=== PATIENT | male | born 1935 | race Caucasian/White ===

== ENCOUNTER 2016-11-30 21:40 | Emergency (ER) | payer MEDICARE, OTHER ==
[2016-11-30] MEDS ORDERED: PHENYLEPHRINE 1% NASAL 15 SPRAYS/15 ML BTL NASAL ONE (22:11)
--- NOTE | 2016-11-30 22:53 | ER PHYSICIAN DOCUMENTATION ---
Physician Documentation [facility] Name:Jatin Mackay Age:81 yrs Sex:Male :1935 Arrival Date:11/30/2016 Time:21:40 Bed2 Private MD:Guillaume Rodriguez ED, Chris Disposition: 11/30/16 22:43 Discharged to Home/Self Care. Impression: Anterior Epistaxis. - Condition is Fair. - Discharge Instructions: EPISTAXIS (Adult), NASAL PACKING, Anterior (Removable). - Prescriptions for Amoxicillin 875 mg Oral - take 1 tablet by ORAL route every 12 hours for 3 days; 6 tablet. - Medical Reconciliation form form. - Follow up: Emergency Department; When: 12/04/2016; Reason: Recheck today's complaints, Continuance of care. - Problem is new. - Symptoms are resolved. - Notes: Drink plenty of fluids. Take Amoxil 875mg by mouth every 12 hours for 3 days to prevent sinusitis Return to the ER in 3 days on the 04 of December to have packing removed. Humidifier at the bedside would be helpful. HPI: 11/30 21:45 This 81 yrs old Male presents to ER via Walk In with complaints of Nose Bleed.cd 21:45 The patient presents with a nose bleed, that is apparently anterior, from the left cd nare, occurred dry air, that is continuous small amount causative factors include: unknown, and the bleeding is not resolved and continues in ER. Onset: The symptom(s)/episode began/occurred acutely, 1.5 hour(s) ago. Modifying factors: The symptoms are alleviated by pressure. Associated signs and symptoms: The patient has no apparent associated signs or symptoms. Severity of symptoms: At their worst the symptoms were moderate in the emergency department the symptoms are unchanged. The patient has experienced similar episodes in the past. Patient is not on anticoagulants. Historical: - Allergies: No known drug Allergies; - Home Meds: 1. terazosin 10 mg oral cap 1 cap once daily at bedtime 2. omeprazole 20 mg oral cpDR 1 cap once daily 3. levothyroxine 112 mcg oral cap 1 cap once daily 4. naproxen 500 mg oral tab 1 tab every 12 hours 5. aspirin 325 mg oral TbEC 1 tab once daily 6. wobenzym joint supplement Q/Day - PMHx: NOSEBLEEDS; ARTHRITIS; CAD; THYROID PROBLEM; - PSHx: Bovine Valve Replacement; Small Bowel Resection ; - Tetanus: < 10 years. - Ebola Screening: : Patient negative for fever greater than or equal to 101.5 degrees Fahrenheit, and additional compatible Ebola Virus Disease symptoms. - Immunization history: Flu Vaccine unknown. - Social history: Smoking status: Patient states former smoker of tobacco. ROS: 22:00 ENT: Positive for nose bleed, Negative for rhinorrhea, sinus congestion, sinus pain. cd 22:00 All other systems are negative. Exam: 22:00 Eyes: Pupils equal round and reactive to light, extra-ocular motions intact. Lids and cd lashes normal. Conjunctiva and sclera are non-icteric and not injected. Cornea within normal limits. Periorbital areas with no swelling, redness, or edema. Neck: Trachea midline, no thyromegaly or masses palpated, and no cervical lymphadenopathy. Supple, full range of motion without nuchal rigidity, or vertebral point tenderness. No Meningismus. Cardiovascular: Regular rate and rhythm with a normal S1 and S2. No gallops, murmurs, or rubs. Normal PMI, no JVD. No pulse deficits. 22:00 Respiratory: Lungs have equal breath sounds bilaterally, clear to auscultation and cd percussion. No rales, rhonchi or wheezes noted. No increased work of breathing, no retractions or nasal flaring. 22:00 Constitutional: The patient appears alert, awake, non-diaphoretic, non-toxic, well developed, well nourished, anxious. 22:00 ENT: Nose: bleeding, is seen from the left nare, and is moderate, no septal hematoma is appreciated, clotted blood, in left nare, Mouth: is normal. Vital Signs: 21:54 BP 154 / 92; Pulse 89; Resp 17; Temp 98.4(TE); Pulse Ox 96% on R/A; Weight 88.45 kg; rh Height 6 ft. 2 in. (187.96 cm); Pain 0/10; 22:51 BP 135 / 84; Pulse 66; Resp 15; Pulse Ox 96% on R/A; Pain 0/10; rh 21:54 Body Mass Index 25.04 (88.45 kg, 187.96 cm) rh Procedures: 22:00 Epistaxis treatment: A moderate amount of bleeding noted from left nare. Treated using Oxymetazoline sprays, cauterization, silver nitrate, direct pressure, nasal clamp, anterior packing, after nasal tampons did not work. MDM: 22:40 Data reviewed: vital signs, nurses notes, old medical records, and as a result, I will cd discharge patient, after packing the patients right nares. Data interpreted: Pulse oximetry: on room air is 96 %. Interpretation: normal. 22:41 Patient medically screened. cd 22:45 Counseling: I had a detailed discussion with the patient and/or guardian regarding: the cd historical points, exam findings, and any diagnostic results supporting the discharge/admit diagnosis, the need for outpatient follow up, for a recheck, with the patient's primary care provider, to return to the emergency department if symptoms worsen or persist or if there are any questions or concerns that arise at home. Response to treatment: the patient's symptoms have resolved after treatment, the patient's condition has returned to base line, the patient is now symptom free, and as a result, I will discharge patient. Dispensed Medications: 20:20 Drug: Afrin Drops 0.05 % 2 drops; Route: Intranasal; Site: left nare; 22:51 Drug: Amoxicillin 500 mg; Route: PO; 22:51 Follow up: Response: No adverse reaction Signatures: Oren Sharma MD MD cd Hofsess, Rachel indiana mcpherson
--- NOTE | 2016-11-30 22:53 | ER NURSING DOCUMENTATION ---
Nurse's Notes [facility] Name:Jatin Mackay Age:81 yrs Sex:Male :1935 Arrival Date:11/30/2016 Time:21:40 Bed2 Private MD:Guillaume Rodriguez Diagnosis:Anterior Epistaxis Presentation: 11/30 21:49 Presenting complaint: Patient states: Pt started having the nose bleed about an hour rh and a half ago. Pt has had nosebleeds like this in the past and his PCP stated that he should go to the ER if he is unable to stop them. Both nares are bleeding. Transition of care: Home. 21:49 Acuity: ADOLPH 4 rh 21:49 Method Of Arrival: Walk In Triage Assessment: 21:53 General: Appears in no apparent distress, Behavior is cooperative. Pain: Denies pain. rh EENT: Nares with bleeding noted bilaterally. Neuro: Level of Consciousness is awake, alert, obeys commands, Oriented to person, place, time, event. Respiratory: Airway is patent Respiratory effort is even, unlabored. Historical: - Allergies: No known drug Allergies; - Home Meds: 1. terazosin 10 mg oral cap 1 cap once daily at bedtime 2. omeprazole 20 mg oral cpDR 1 cap once daily 3. levothyroxine 112 mcg oral cap 1 cap once daily 4. naproxen 500 mg oral tab 1 tab every 12 hours 5. aspirin 325 mg oral TbEC 1 tab once daily 6. wobenzym joint supplement Q/Day - PMHx: NOSEBLEEDS; ARTHRITIS; CAD; THYROID PROBLEM; - PSHx: Bovine Valve Replacement; Small Bowel Resection ; - Tetanus: < 10 years. - Ebola Screening: : Patient negative for fever greater than or equal to 101.5 degrees Fahrenheit, and additional compatible Ebola Virus Disease symptoms. - Immunization history: Flu Vaccine unknown. - Social history: Smoking status: Patient states former smoker of tobacco. Screenin:54 Infectious Disease Risk None. Abuse screen: Denies threats or abuse. Denies injuries rh from another. Nutritional screening: No deficits noted. Assessment: 21:54 See Triage Assessment done by same RN. Vital Signs: 21:54 BP 154 / 92; Pulse 89; Resp 17; Temp 98.4(TE); Pulse Ox 96% on R/A; Weight 88.45 kg; rh Height 6 ft. 2 in. (187.96 cm); Pain 0/10; 22:51 BP 135 / 84; Pulse 66; Resp 15; Pulse Ox 96% on R/A; Pain 0/10; 21:54 Body Mass Index 25.04 (88.45 kg, 187.96 cm) ED Course: 21:44 Patient arrived in ED. ma1 21:44 Guillaume Rodriguez is Private Physician. [facility] 21:48 Nosebleed Care Nasal Clamp Applied. 21:49 Vanessa Chen is Primary Nurse. 21:50 Triage completed. 21:54 Notified ED Physician of patient's arrival and chief complaint. Dr. Sharma notified. 21:55 Valuables Remains with patient. 22:41 Oren Sharma MD is Attending Physician. 22:41 Assist Provider Assist provider with nosebleed control using Afrin sprays, simple rh cauterization, direct pressure, nasal clamp, posterior packing, Bleeding from both nares. Set up for procedure. Performed by Oren Sharma MD Bleeding stopped. Patient tolerated well. Administered Medications: 20:20 Drug: Afrin Drops 0.05 % 2 drops; Route: Intranasal; Site: left nare; 22:51 Drug: Amoxicillin 500 mg; Route: PO; 22:51 Follow up: Response: No adverse reaction Outcome: 22:43 Discharge ordered by . 22:51 Discharged to home ambulatory, with friend. 22:51 Condition: improved 22:51 Discharge Assessment: Patient awake, alert and oriented x 3. No cognitive and/or functional deficits noted. Patient verbalized understanding of disposition instructions. nosebleed under control with nasal packing 22:51 Discharge instructions given to patient, Instructed on discharge instructions, follow up and referral plans. medication usage, Demonstrated understanding of instructions, medications, Prescriptions given X 1. 22:52 Patient left the ED. 12/01 12:47 Discharge F/U Call: Unable to reach: no answer ny 12/02 10:20 Discharge F/U Call: Unable to reach: no answer Signatures: Ellen Urban RN Oren Anguiano ma, MD MD cd Hofsess, Rachel [place] mcpherson Nany Field Melissa [facility]
[2016-11-30] MEDS ORDERED: AMOXICILLIN 250 MG CAPSULE PO ONE (22:54)
== END 2016-11-30 22:53 | disposition home or self-care (01) ==
LOC: ER 21:40
DX: R04.0 Epistaxis (principal); Z79.82 Long term (current) use of aspirin; I25.10 Atherosclerotic heart disease of native coronary artery without angina pectoris; Z79.899 Other long term (current) drug therapy; Z95.3 Presence of xenogenic heart valve
CPT/HCPCS: 30901; 30903; 30905; 99282; 99283

== ENCOUNTER 2016-12-04 09:07 | Emergency (ER) | payer MEDICARE, OTHER ==
--- NOTE | 2016-12-04 09:25 | ER NURSING DOCUMENTATION ---
Nurse's Notes [facility] Name:Jatin Mackay Age:81 yrs Sex:Male :1935 Arrival Date:12/04/2016 Time::07 Bed2 Private MD:Guillaume Rodriguez Diagnosis:Epistaxis - Nose Bleed Presentation: 12/04 09:09 Acuity: ADOLPH 4 09:20 Presenting complaint: Patient states: Nasal Packing Removal. Transition of care: Home. : Method Of Arrival: Walk In Triage Assessment: : General: Appears in no apparent distress, Behavior is cooperative. Pain: Denies pain. rh EENT: Nares are clear on right Nasal Packing in place. Historical: - Allergies: No known drug Allergies; - Home Meds: 1. terazosin 10 mg oral cap 1 cap once daily at bedtime 2. omeprazole 20 mg oral cpDR 1 cap once daily 3. levothyroxine 112 mcg oral cap 1 cap once daily 4. naproxen 500 mg oral tab 1 tab every 12 hours 5. aspirin 325 mg oral TbEC 1 tab once daily 6. wobenzym joint supplement Q/Day - PMHx: NOSEBLEEDS; ARTHRITIS; CAD; THYROID PROBLEM; Anterior Epistaxis (November 30, 2016); - PSHx: Bovine Valve Replacement; Small Bowel Resection ; - Tetanus: < 10 years. - Ebola Screening: : Patient negative for fever greater than or equal to 101.5 degrees Fahrenheit, and additional compatible Ebola Virus Disease symptoms. - Immunization history: Flu Vaccine < 1 year. - Social history: Smoking status: Patient states former smoker of tobacco. Screenin: Infectious Disease Risk None. Abuse screen: Denies threats or abuse. Denies injuries rh from another. Nutritional screening: No deficits noted. Assessment: : See Triage Assessment done by same RN. : Reassessment: nasal packing removed from right nare, no bleeding noted. . Vital Signs: : BP 126 / 80; Pulse 73; Resp 16; Pulse Ox 96% ; Weight 88.45 kg; Height 6 ft. 1 in. rh (185.42 cm); Pain 0/10; 09:21 Body Mass Index 25.73 (88.45 kg, 185.42 cm) ED Course: : Patient arrived in ED. ama 09: Guillaume Rodriguez is Private Physician. ama 09:09 Vanessa Chen is Primary Nurse. rh 09:15 Triage completed. rh 09:22 Valuables Remains with patient Patient has correct armband on for positive rh identification. 09:22 Nasal Packing from right nare. rh Administered Medications: No medications were administered Outcome: :23 Discharged to home ambulatory. rh 09:23 Condition: improved 09:23 Instructed on discharge instructions, follow up and referral plans. 09:23 No charge visit due to Nasal Packing removal . 09:24 Discharge ordered by MD. rh 09:24 Patient left the ED. rh Signatures: Rafat Garvin, Reg Reg Vanessa Richards rh
== END 2016-12-04 09:25 | disposition home or self-care (01) ==
LOC: ER 09:07
DX: Z48.00 Encounter for change or removal of nonsurgical wound dressing (principal); R04.0 Epistaxis

== ENCOUNTER 2016-12-15 19:52 | Emergency (ER) | payer MEDICARE, OTHER ==
[2016-12-15] MEDS ORDERED: PHENYLEPHRINE 1% NASAL 15 SPRAYS/15 ML BTL NASAL ONE (20:16)
[2016-12-15] MEDS ORDERED: AMOXICILLIN 250 MG CAPSULE PO ONE (20:27)
--- NOTE | 2016-12-15 20:29 | ER PHYSICIAN DOCUMENTATION ---
Physician Documentation [facility] Name:Jatin Mackay Age:81 yrs Sex:Male :1935 Arrival Date:12/15/2016 Time:19:52 Bed2 Private MD:Guillaume Rodriguez ED, Chris Disposition: 12/15/16 20:15 Discharged to Home/Self Care. Impression: Anterior Epistaxis - : Acute Left. - Condition is Good. - Discharge Instructions: EPISTAXIS (Adult), NASAL PACKING, Anterior (Removable). - Prescriptions for Amoxicillin 875 mg Oral - take 1 tablet by ORAL route every 12 hours for 10 days; 6 tablet. - Medical Reconciliation form form. - Follow up: Emergency Department; When: 12/18/2016; Reason: Recheck today's complaints, Continuance of care. - Problem is new. - Symptoms are resolved. HPI: 12/15 19:55 This 81 yrs old Male presents to ER via Private Vehicle with complaints of cd Nose Bleed. 19:55 The patient presents with a nose bleed, that is apparently anterior, from the left cd nare, occurred dry air, that is small amount with clots, stopped /dried blood noted. causative factors include: previous HX of nosebleeds, and the bleeding resolved prior to arrival. Onset: The symptom(s)/episode began/occurred acutely, tonight. Associated signs and symptoms: The patient has no apparent associated signs or symptoms. The patient has experienced similar episodes in the past. Historical: - Allergies: No known drug Allergies; - Home Meds: 1. terazosin 10 mg oral cap 1 cap once daily at bedtime 2. omeprazole 20 mg oral cpDR 1 cap once daily 3. levothyroxine 112 mcg oral cap 1 cap once daily 4. naproxen 500 mg oral tab 1 tab every 12 hours 5. aspirin 325 mg oral TbEC 1 tab once daily - PMHx: NOSEBLEEDS; ARTHRITIS; CAD; THYROID PROBLEM; Anterior Epistaxis (November 30, 2016); Epistaxis - Nose Bleed (December 04, 2016); - PSHx: Bovine Valve Replacement; Small Bowel Resection ; - Tetanus: unknown. - Ebola Screening: : No symptoms or risks identified at this time. . - Immunization history: Flu Vaccine unknown. - Social history: Smoking status: Patient states former smoker of tobacco. Patient uses alcohol occasionally. ROS: 20:10 Constitutional: Negative for chills, fever, poor PO intake. cd 20:10 ENT: Positive for nose bleed, Negative for sinus congestion, sinus pain, sore throat. Exam: 20:10 Constitutional: The patient appears in no acute distress, alert, awake. cd 20:10 ENT: Nose: bleeding, is seen from the left nare, and is minimal, no septal hematoma is appreciated, Mouth: is normal, Posterior pharynx: is normal. 20:10 Eyes: Pupils equal round and reactive to light, extra-ocular motions intact. Lids and cd lashes normal. Conjunctiva and sclera are non-icteric and not injected. Cornea within normal limits. Periorbital areas with no swelling, redness, or edema. 20:10 Neck: Trachea midline, no thyromegaly or masses palpated, and no cervical cd lymphadenopathy. Supple, full range of motion without nuchal rigidity, or vertebral point tenderness. No Meningismus. Vital Signs: 20:08 BP 145 / 86; Pulse 56; Resp 16; Temp 97.8; Pulse Ox 93% ; Weight 88.45 kg; Height 6 ft. ma 3 in. (190.50 cm); Pain 0/10; 20:08 Body Mass Index 24.37 (88.45 kg, 190.50 cm) ma Procedures: 20:10 Epistaxis treatment: A small amount of bleeding noted from left nare. Treated using cd Oxymetazoline sprays, rhino rocket, Bleeding stopped. MDM: 20:10 Data reviewed: vital signs, nurses notes, and as a result, I will discharge patient, administer antibiotics Amoxicillin. Data interpreted: Pulse oximetry: on room air is 93 %. Interpretation: normal. Counseling: I had a detailed discussion with the patient and/or guardian regarding: the historical points, exam findings, and any diagnostic results supporting the discharge/admit diagnosis, the need for outpatient follow up, for a recheck, with the patient's primary care provider, to return to the emergency department if symptoms worsen or persist or if there are any questions or concerns that arise at home. 20:14 Patient medically screened. cd Dispensed Medications: 20:28 Drug: Amoxicillin 500 mg; Route: PO; ma 20:28 Follow up: Response: Medication administered at discharge. ma Signatures: Ellen Urban RN RN Oren Anaya, MD KWONG cd
--- NOTE | 2016-12-15 20:29 | ER NURSING DOCUMENTATION ---
Nurse's Notes [facility] Name:Jatin Mackay Age:81 yrs Sex:Male :1935 Arrival Date:12/15/2016 Time:19:52 Bed2 Private MD:Guillaume Rodriguez Diagnosis:Anterior Epistaxis-: Acute Left Presentation: 12/15 19:54 Acuity: ADOLPH 4 rh 20:00 Presenting complaint: Patient states: Patient with nosebleed recurring over past 1-2 ma weeks Seen in ER with nasal packing for same over one week ago. Transition of care: Home. 20:00 Method Of Arrival: Private Vehicle nv Triage Assessment: 20:08 General: Appears in no apparent distress, Behavior is. Pain: Denies pain. ma Historical: - Allergies: No known drug Allergies; - Home Meds: 1. terazosin 10 mg oral cap 1 cap once daily at bedtime 2. omeprazole 20 mg oral cpDR 1 cap once daily 3. levothyroxine 112 mcg oral cap 1 cap once daily 4. naproxen 500 mg oral tab 1 tab every 12 hours 5. aspirin 325 mg oral TbEC 1 tab once daily - PMHx: NOSEBLEEDS; ARTHRITIS; CAD; THYROID PROBLEM; Anterior Epistaxis (November 30, 2016); Epistaxis - Nose Bleed (December 04, 2016); - PSHx: Bovine Valve Replacement; Small Bowel Resection ; - Tetanus: unknown. - Ebola Screening: : No symptoms or risks identified at this time. . - Immunization history: Flu Vaccine unknown. - Social history: Smoking status: Patient states former smoker of tobacco. Patient uses alcohol occasionally. Screenin:09 Infectious Disease Risk None. Abuse screen: Denies threats or abuse. Nutritional ma screening: No deficits noted. Assessment: 20:28 Reassessment: No active bleeding on discharge. ma Vital Signs: 20:08 BP 145 / 86; Pulse 56; Resp 16; Temp 97.8; Pulse Ox 93% ; Weight 88.45 kg; Height 6 ft. ma 3 in. (190.50 cm); Pain 0/10; 20:08 Body Mass Index 24.37 (88.45 kg, 190.50 cm) ma ED Course: 19:53 Patient arrived in ED. em2 19:53 Guillaume Rodriguez is Private Physician. em2 19:54 Triage completed. rh 20:00 Abuso, Ellen, RN is Primary Nurse. ma 20:09 Valuables Patient has correct armband on for positive identification. Bed in low ma position. Call light in reach. Side rails up X 1. 20:14 Oren Sharma MD is Attending Physician. cd Administered Medications: 20:28 Drug: Amoxicillin 500 mg; Route: PO; ma 20:28 Follow up: Response: Medication administered at discharge. nv Outcome: 20:15 Discharge ordered by . cd 20:28 Discharged to home nv 20:28 Condition: good 20:28 Instructed on discharge instructions, follow up and referral plans. medication usage, Prescriptions given X 1. 20:29 Patient left the ED. nv 12/16 11:02 Discharge F/U Call: Spoke with: patient. 11:04 Discharge F/U Call: Have you filled your prescriptions? yes. Did your discharge sj instructions answer all of your questions? yes What is the one thing you feel we could do to improve? Patient's answer: "I filled my prescription but it only gave me three days worth (6 tabs). The doctor told me I was to take it for 10 days." Will have Dr[address] Sharma call back and correct prescription. 11:27 Discharge F/U Call: Spoke with: patient. What is the one thing you feel we could do sj to improve? Patient's answer: Informed patient per Dr. Sharma that he indeed was only to have 3 days worth of antibiotics until he returns to ED for packing removal and further eval. Pt verbalized understanding. Signatures: Ellen Ubran RN RN ma Daley, Chris, MD MD Reuben-reg, Laith [facility] HospitalVanessa williamson Yenny Riverast. [facility]
== END 2016-12-15 20:29 | disposition home or self-care (01) ==
LOC: ER 19:52
DX: R04.0 Epistaxis (principal); Z79.82 Long term (current) use of aspirin; I25.10 Atherosclerotic heart disease of native coronary artery without angina pectoris; Z95.4 Presence of other heart-valve replacement; Z79.899 Other long term (current) drug therapy
CPT/HCPCS: 30901; 30903; 99283

== ENCOUNTER 2016-12-18 09:48 | Emergency (ER) | payer MEDICARE, OTHER ==
--- NOTE | 2016-12-18 10:09 | ER NURSING DOCUMENTATION ---
Nurse's Notes [facility] Name:Jatin Mackay Age:81 yrs Sex:Male :1935 Arrival Date:12/18/2016 Time:09:48 Bed2 Private MD:Guillaume Rodriguez Diagnosis:Epistaxis - Nose Bleed Presentation: 12/18 09:55 Acuity: ADOLPH 4 st 10:04 Presenting complaint: Patient states: pt is here for nasal packing removal. Transition st of care: Home. 10:04 Method Of Arrival: Private Vehicle st Assessment: 10:06 General: nasal packing removed. no bleeding present. . st Vital Signs: 10:06 Pulse 72; Pulse Ox 97% ; st ED Course: 09:48 Patient arrived in ED. lm3 09:49 Guillaume Rodriguez is Private Physician. lm3 09:55 Gabriela Alston RN is Primary Nurse. st 09:[address] 10:[address] Administered Medications: No medications were administered Outcome: 10:07 Discharged to home ambulatory. st 10:07 Condition: improved 10:07 Discharge instructions given to patient, Instructed on discharge instructions, follow up and referral plans. 10:07 No charge visit due to 10:07 Recheck visit only other nasal packing removed. 10:08 Discharge ordered by MD. st 10:08 Patient [address] the ED. st Signatures: Gabriela Alston RN RN Michelle Farias 3
== END 2016-12-18 10:09 | disposition home or self-care (01) ==
LOC: ER 09:48
DX: R04.0 Epistaxis (principal); Z48.00 Encounter for change or removal of nonsurgical wound dressing
CPT/HCPCS: 99281